=== PATIENT | male | born 1955 | race Caucasian/White ===

== ENCOUNTER 2019-09-26 19:16 | Emergency (ER) | payer OTHER ==
[~2019-09-26] VITALS: Ht 172.7 cm; Wt 76.5 kg
--- NOTE | 2019-09-26 19:25 | NUR ---
NAX1 WHEN CALLED FOR TRIAGE
--- NOTE | 2019-09-26 19:52 | NUR ---
PT AMBULATED TO ROOM W/ A STEADY GAIT.
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
--- NOTE | 2019-09-26 20:13 | NUR ---
PT TO RAD.
--- NOTE | 2019-09-26 20:33 | NUR ---
PT AMBULATED TO THE BR W/ A STEADY GAIT.
[2019-09-26 20:46] VITALS: BP 127/76
--- NOTE | 2019-09-26 21:16 | NUR ---
CALL TO XRAY REGARDING DELAY. STATES IT WILL BE 10 MORE MINUTES.
--- NOTE | 2019-09-26 21:21 | NUR ---
PT TO XRAY.
--- NOTE | 2019-09-26 21:52 | NUR ---
ALL TESTS RESULTED. PT IS UP FOR RECHECK AT THIS TIME.
--- NOTE | 2019-09-26 22:10 | NUR ---
Shady ratliff in ED - 09/26/19 at 2212 by [place] PT PROVIDED W/ PANTS AFTER REPORTING SHE SOILED HERSELF.
== END 2019-09-26 22:27 | disposition home or self-care (01) ==
LOC: ED 20:55
DX: S16.1XXA Strain of muscle, fascia and tendon at neck level, initial encounter (principal); S39.012A Strain of muscle, fascia and tendon of lower back, initial encounter; V89.2XXA Person injured in unspecified motor-vehicle accident, traffic, initial encounter; Y93.89 Activity, other specified; Y92.89 Other specified places as the place of occurrence of the external cause; Y99.8 Other external cause status
CPT/HCPCS: 72072; 72110; 72125; 99284